=== PATIENT | male | born 1935 | race Caucasian/White ===

== ENCOUNTER 2017-04-23 14:51 | Emergency (ER) | payer MEDICARE, OTHER ==
[~2017-04-23] VITALS: Ht 172.7 cm; Wt 83.6 kg
[~2017-04-23 14:51] MED LIST: AMLO-121 PO; ATOR80TA PO; BRIM5DRO2 OCULAR; BRIN10DR OCULAR; HYDR25TA4 PO; LATA2.5D5 OCULAR; SERT50TA9 PO; TAMS0.4C98 PO
[2017-04-23 14:52] VITALS: BP 198/106; PULSE 60; RESP 16; O2SAT 96
--- NOTE | 2017-04-23 15:34 | ED.REPORT ---
HPI-General Illness Date of Service Apr 23, 2017 ED Provider: Desiree Dailey MD The pt is a 81 y/o male with hx of HTN, hyperlipidemia, diastolic heart murmur and BPH with urinary retention who presents to the ED following an asymptomatic hypertensive episode that occurred this morning. The pt checked his BP this morning and recorded his systolic BP in the 200's and become increasingly anxious. He states that he has been taking the medication as prescribed but believes he may have missed one dose of his BP medication, which he attributes to be the reason for his elevated BP. He has been completely asymptomatic since onset. Nursing Notes Stated Complaint: HIGH BLOOD PRESSURE Chief Complaint: General Complaint Nursing Notes Reviewed: Yes Allergies: Coded Allergies: No Known Allergies (Unverified , 02/10/16) Scheduled Amlodipine/Benazepril 10-40 mg (Amlodipine/Benazepril 10-40 mg) 1 Each Capsule 1 CAPSULE PO DAILY Atorvastatin (Lipitor) 80 Mg Tablet 40 MG PO DAILY Brimonidine Tartrate (Alphagan P) 5 Ml Drops 5 ML OCULAR BID both eyes Brinzolamide (Azopt 1% Ophthalmic Suspension) 10 Ml Drops.susp 1 DROP OCULAR BID Hydrochlorothiazide (Hydrochlorothiazide) 25 Mg Tablet 25 MG PO DAILY Latanoprost (Xalatan) 2.5 Ml Drops 2.5 ML OCULAR DAILY both eyes Sertraline HCl (Sertraline) 50 Mg Tablet 50 MG PO DAILY Tamsulosin (Flomax) 0.4 Mg Capsule 0.4 MG PO HS General Time Seen by MD: 17:54 Chief Complaint Other (Hypertension) Hx Obtained From: Patient Arrived By: Walk-in Sudden in Onset?: Yes Onset Occurred: 3 days ago Symptom Duration: Since onset Caused by: Fall on ground Additional Notes: Asymptomatic Pertinent Negative: Pt denies other symptoms Recent Healthcare: No recent doctor visit, No recent hospitalization Past Medical History Past Medical History Hx skin cancer Hx brain tumor at age 18 BPH with urinary retention Glaucoma Neuropathy LE Spinal Stenosis heart murmur arthritis depression Reports: GERD, Hyperlipidemia, Hypertension Past Surgical History Skin Cancer Melanoma Brain tumor s/p resection with 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 Physical Exam Vital Signs Vital Signs Date Time Temp Pulse Resp B/P Pulse Ox O2 Delivery O2 Flow Rate FiO2 04/23/17 18:54 62 18 204/82 98 Room Air 04/23/17 16:56 36.1 80 16 163/83 96 Room Air 04/23/17 14:52 36.6 60 16 198/106 96 Room Air Initial VS: Reviewed General/Constitutional: Well-developed, Well-nourished Head / Eyes: Atraumatic, Normocephalic, PERRL Neck: Supple, Full range of motion Respiratory: Breath sounds normal, Clear to auscultation, No respiratory distress Skin: Warm, Dry, No cyanosis Neurologic: Alert, Oriented, Nonfocal Psychiatric: Mood/affect normal, Behavior normal, Normal thought content Cardiovascular: Heart rate NL, Regular rhythm Heart Sounds / Murmur: Positive: Diastolic murmur present. (III/ with a widely split S2 and displaced PMI) Lower Extremity / Pelvis / MS: Atraumatic, No swelling, Neurologic intact, Vascular intact, No edema Neurologic: Oriented X3, Speech NL, CN II - XII intact NEURO: Positive romberg test Re-Eval/Medical Decision Source of Hx: Old records Time of Eval: 17:54 Patient Status: Condition improved Re-Evaluation/Progress Note: Pt rechecked. Systolic BP is in the 170's. Informed to keep taking his BP medication and plan for discharge. The pt understands and agrees with plan for discharge. He is given strict return precautions. All questions about follow up with PCP addressed at this time. Counseled Regarding: Diagnosis, Lab results, Need for follow-up, When/why to return to ED Discharge & Departure Primary Impression: Hypertension Hypertension type: unspecified secondary hypertension Qualified Code: I15.9 - Secondary hypertension, unspecified Disposition: Home Discharge Condition All VS Reviewed: Yes Condition: Stable Patient Instructions: Chronic Hypertension (ED) Additional Instructions: Thank you for entrusting us with your care today. Your blood pressure is elevated in the emergency department at 213/82. You are not having any concerning signs or symptoms of acute issues related to this. Please continue ALL of your current medications. Please call your primary care provider to make an appointment to follow up regarding your blood pressure medications. Return to the emergency department if you experience chest pain, shortness of breath, or any worsening or new symptoms of concern. Referrals: Candelaria Fair MD [facility] Attestation Portions of this note were transcribed by Erna Cho and Delilah Mejia. I, Dr. Desiree Dailey personally performed the history, physical exam and medical decision-making; I reviewed and confirmed the accuracy of the information in the transcribed note. Signed by: Erna Cho and Delilah Mejia, Ju, 04/23/17. copies to: Candelaria Fair MD, Shawna L MD Apr 23, 2017 15:34 Erna Cho Apr 23, 2017 15:48 DELILAH MEJIA Apr 23, 2017 18:33
[2017-04-23 16:56] VITALS: BP 163/83; PULSE 80; RESP 16; O2SAT 96
[2017-04-23 18:54] VITALS: BP 204/82; PULSE 62; RESP 18; O2SAT 98
== END 2017-04-23 18:55 | disposition home or self-care (01) ==
LOC: SED 14:51
DX: I15.9 Secondary hypertension, unspecified (principal); E78.5 Hyperlipidemia, unspecified; K21.9 Gastro-esophageal reflux disease without esophagitis; F32.9 Major depressive disorder, single episode, unspecified; H40.9 Unspecified glaucoma; Z87.891 Personal history of nicotine dependence